=== PATIENT | female | born 1965 | race Caucasian/White ===

== ENCOUNTER 2018-07-14 07:32 | Emergency (ER) | payer BC, OTHER ==
[2018-07-14] MEDS ORDERED: LORazepam 1 MG Tab PO ONE (08:43)
[2018-07-14 09:36] LABS: CHLORIDE,CL 103 mmol/L (98-107); SODIUM,NA 139 mmol/L (136-145)
--- NOTE | 2018-07-14 09:41 | EDM.PDOC ---
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 Patient denies any medical problems, fevers, chills, syncope or other complaints. Review of systems: As per history of present illness and below otherwise all systems reviewed and negative. Past medical history: As per history of present illness and as reviewed below otherwise noncontributory. Surgical history: As per history of present illness and as reviewed below otherwise noncontributory. Social history: No reported history of drug or alcohol abuse. Family history: As per history of present illness and as reviewed below otherwise noncontributory. Physical exam: General: Well developed, well nourished in NAD HEENT: Atraumatic, normocephalic, pupils reactive, negative for conjunctival pallor or scleral icterus, mucous membranes moist, throat clear, neck supple, nontender, trachea midline. Lungs: Clear to auscultation, breath sounds equal bilaterally, chest nontender. Heart: S1S2, regular, negative for clicks, rubs, or JVD. Abdomen: NABS, Soft, nondistended, nontender. Negative for masses or hepatosplenomegaly. Negative for costovertebral tenderness. Pelvis: Stable nontender. Genitourinary: Deferred. Rectal: Deferred. Extremities: Atraumatic, negative for cords or calf pain. Neurovascular unremarkable. Neuro: Awake, alert, oriented. Cranial nerves II through XII unremarkable. Cerebellum unremarkable. Motor and sensory unremarkable throughout. Exam nonfocal. Skin:warm and dry Diagnostics: CBC, chemistry, d-dimer, EKG Therapeutics: Ativan ED Course: Improved Impression: Anxiety attack Prescriptions: Xanax 0.25, 6 tablets no refills Plan: Follow-up with primary care Definitive disposition and diagnosis as appropriate pending reevaluation and review of above. 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: Musculoskeletal History: Reports: Arthritis, Back Pain, Chronic Other Musculoskeletal History: arthritis to back and hip Psychiatric History: Reports: Anxiety Endocrine/Metabolic History: Reports: None - Past Surgical History Head Surgeries/Procedures: Reports: None Female Surgical History: Reports: Endometrial Ablation Musculoskeletal Surgical History: Reports: Other (See Below) Other Musculoskeletal Surgeries/Procedures:: Bunion Social & Family History - Family History Family Medical History: Noncontributory - Tobacco Use Smoking Status *Q: Current Every Day Smoker Years of Tobacco use: 10 Packs/Tins Daily: 0.5 - Caffeine Use Caffeine Use: Reports: Energy Drinks - Recreational Drug Use Recreational Drug Use: No ED ROS GENERAL - Review of Systems Review Of Systems: ROS reveals no pertinent complaints other than HPI. ED EXAM, GENERAL - Physical Exam Exam: See Below (See history of present illness) Course - Vital Signs Last Recorded V/S: Last Vital Signs Temp 95.9 F 07/14/18 07:37 Pulse 97 07/14/18 09:46 Resp 18 07/14/18 09:46 BP 119/72 07/14/18 09:46 Pulse Ox 99 07/14/18 09:46 - Orders/Labs/Meds Orders: Active Orders 24 hr Category Date Time Status EKG Documentation Completion [RC] STAT Care 07/14/18 08:49 Active Labs: Laboratory Tests 07/14/18 07/14/18 07/14/18 Range/Units 09:00 09:00 09:00 WBC 6.01 (4.0-11.0) K/uL RBC 4.34 (4.30-5.90) M/uL Hgb 13.8 (12.0-16.0) g/dL Hct 41.0 (36.0-46.0) % MCV 94.5 (80.0-98.0) fL MCH 31.8 (27.0-32.0) pg MCHC 33.7 (31.0-37.0) g/dL RDW Std Deviation 44.2 (28.0-62.0) fl RDW Coeff of Pam 13 (11.0-15.0) % Plt Count 237 (150-400) K/uL MPV 10.10 (7.40-12.00) fL Neut % (Auto) 68.1 (48.0-80.0) % Lymph % (Auto) 21.6 (16.0-40.0) % [place] % (Auto) 8.5 (0.0-15.0) % Eos % (Auto) 1.3 (0.0-7.0) % Baso % (Auto) 0.5 (0.0-1.5) % Neut # (Auto) 4.1 (1.4-5.7) K/uL Lymph # (Auto) 1.3 (0.6-2.4) K/uL [place] # (Auto) 0.5 (0.0-0.8) K/uL Eos # (Auto) 0.1 (0.0-0.7) K/uL Baso # (Auto) 0.0 (0.0-0.1) K/uL Nucleated RBC % 0.0 /100WBC Nucleated RBCs # 0 K/uL D-Dimer, Quantitative < 0.19 (0.0-0.50) mg/L FEU Sodium 139 (136-145) mmol/L Potassium 4.5 (3.5-5.1) mmol/L Chloride 103 (98-107) mmol/L Carbon Dioxide 26.6 (21.0-32.0) mmol/L BUN 12 (7.0-18.0) mg/dL Creatinine 0.9 (0.6-1.0) mg/dL Est Cr Clr Drug Dosing 53.73 mL/min Estimated GFR (MDRD) > 60.0 ml/min Glucose 105 (74-106) mg/dL Calcium 9.2 (8.5-10.1) mg/dL Total Bilirubin 1.1 H (0.2-1.0) mg/dL AST 24 (15-37) IU/L ALT 30 (14-63) IU/L Alkaline Phosphatase 33 L (46-116) U/L Total Protein 7.4 (6.4-8.2) g/dL Albumin 4.2 (3.4-5.0) g/dL Globulin 3.2 (2.6-4.0) g/dL Albumin/Globulin Ratio 1.3 (0.9-1.6) Meds: Medications Discontinued Medications Generic Name Dose Route Start Last Admin Trade Name Freq PRN Reason Stop Dose Admin Lorazepam 1 mg 07/14/18 08:43 07/14/18 09:00 Ativan PO 07/14/18 08:44 1 mg ONETIME ONE Administration Departure - Departure Time of Disposition: 09:37 Disposition: Home, Self-Care 01 Condition: Good Clinical Impression: Anxiety attack - Discharge Information *PRESCRIPTION DRUG MONITORING PROGRAM REVIEWED*: No *COPY OF PRESCRIPTION DRUG MONITORING REPORT IN PATIENT DAIJA: No Prescriptions: ALPRAZolam [Xanax] 0.25 mg PO BID PRN #6 tablet PRN Reason: Anxiety Instructions: Living With Anxiety Referrals: PCP,None [Primary Care Provider] - Forms: ED Department Discharge Additional Instructions: The following information is given to patients seen in the emergency department who are being discharged to home. This information is to outline your options for follow-up care. We provide all patients seen in our emergency department with a follow-up referral. The need for follow-up, as well as the timing and circumstances, are variable depending upon the specifics of your emergency department visit. If you don't have a primary care physician on staff, we will provide you with a referral. We always advise you to contact your personal physician following an emergency department visit to inform them of the circumstance of the visit and for follow-up with them and/or the need for any referrals to a consulting specialist. The emergency department will also refer you to a specialist when appropriate. This referral assures that you have the opportunity for follow-up care with a specialist. All of these measure are taken in an effort to provide you with optimal care, which includes your follow-up. Under all circumstances we always encourage you to contact your private physician who remains a resource for coordinating your care. When calling for follow-up care, please make the office aware that this follow-up is from your recent emergency room visit. If for any reason you are refused follow-up, please contact the [facility] Emergency Department at and asked to speak to the emergency department charge nurse. VANESSA [facility] [address] [place] [address] - My Orders Last 24 Hours: My Active Orders 07/14/18 08:49 EKG Documentation Completion [RC] STAT - Assessment/Plan Last 24 Hours: My Active Orders 07/14/18 08:49 EKG Documentation Completion [RC] STAT
[2018-07-14 09:51] VITALS: BP 119/72
== END 2018-07-14 09:46 | disposition home or self-care (01) ==
LOC: MW.ED 07:32
DX: F41.0 Panic disorder [episodic paroxysmal anxiety] (principal); F17.210 Nicotine dependence, cigarettes, uncomplicated
CPT/HCPCS: 36415; 80053; 85025; 85379; 93005; 99283; A9270